=== PATIENT | male | born 1955 | race Asian ===

== ENCOUNTER 2019-06-20 19:40 | Inpatient (IN) | payer MEDICAID ==
[~2019-06-20] VITALS: Ht 175.3 cm; Wt 57.8 kg
[2019-06-20 20:00] VITALS: BP 111/74
[2019-06-20 22:00] VITALS: BP 110/78
[2019-06-20] MEDS ORDERED: HYDROCODONE/ACETAMINOPHEN 5/325MG TABLET PO PRN (23:15)
[2019-06-21] VITALS (11 sets, daily range): BP systolic 99–137; BP diastolic 57–86
[2019-06-21 01:06] LABS: CREATINE KINASE MB FRACTION 1.4 ng/mL (0.5-3.6)
[2019-06-21] MEDS ORDERED: LIDOCAINE HCL 1% 20ML VIAL (Pyxis) INJ ONE (07:52)
[2019-06-21] MEDS ORDERED: IOHEXOL-300 100 ML BOTTLE ONE ×2 (07:52→08:51)
[2019-06-21] MEDS ORDERED: FENTANYL CITRATE/PF 50MCG/ML 2ML VIAL ONE (07:53)
[2019-06-21] MEDS ORDERED: MIDAZOLAM HCL 2 MG/2 ML VIAL ONE (07:53)
[2019-06-21] MEDS ORDERED: IODIXANOL 320MG/ML 100 ML BOTTLE IV ONE (08:51)
[2019-06-21] MEDS ORDERED: SODIUM CHLORIDE 0.45% 1,000 ML IV ONE (09:15)
[2019-06-21] MEDS ORDERED: ACETAMINOPHEN 325MG TABLET PO PRN (09:15)
[2019-06-21] MEDS ORDERED: MORPHINE SULFATE 2 MG/ML CPJ (NOT FOR IM USE) IV PRN (09:15)
[2019-06-21] MEDS ORDERED: ONDANSETRON HCL 4MG/2ML INJ IV PRN (09:15)
[2019-06-21] MEDS ORDERED: ATROPINE SULFATE 1MG/10ML SYR IV PRN (09:15)
[2019-06-21] MEDS ORDERED: CLOPIDOGREL 75MG TABLET ONE (09:27)
[2019-06-21] MEDS: METOPROLOL TARTRATE 25MG TABLET PO SCH ×2 (09:58→21:02)
[2019-06-21] MEDS: ASPIRIN 81MG TABLET PO SCH (09:58)
[2019-06-21] MEDS ORDERED: DEXTROSE 50% WATER 50ML SYRINGE IV PRN (11:00)
[2019-06-21] MEDS: BLOOD SUGAR DIAGNOSTIC STRIP TEST SCH ×4 (11:20→21:13)
[2019-06-21] MEDS: INSULIN LISPRO 100 UNITS/ML SUBCUT SCH ×4 (12:48→21:14)
[2019-06-21] MEDS ORDERED: HEPARIN SODIUM 1,000 UNIT/1ML VIAL IV ONE (13:15)
[2019-06-21 15:30] LABS: BASOPHILS % 0.3 % (0.0-2.0); EOSINOPHILS % 2.2 % (0.0-5.0); HEMATOCRIT. 34.6 % (42.0-52.0); HEMOGLOBIN. 11.7 g/dL (14.0-18.0); LYMPHOCYTES % 18.3 % (20.0-50.0); MEAN CORPUSCULAR HEMOGLOBIN 31.4 pg (28.0-32.0); MEAN CORPUSCULAR VOLUME 93.1 fL (80.0-94.0); MEAN PLATELET VOLUME 7.9 fl (7.4-10.4); MONOCYTES % 6.9 % (2.0-8.0); NEUTROPHILS % 72.3 % (40.0-76.0); PLATELET 350 x1000/uL (130-400); RED BLOOD CELL COUNT 3.72 mill/uL (4.7-6.1)
[2019-06-21 15:34] LABS: CHLORIDE 106 mEq/L (98-107)
[2019-06-21 15:43] LABS: CREATINE KINASE 26 IU/L (39-308)
[2019-06-21 15:45] LABS: CREATINE KINASE MB FRACTION 1.5 ng/mL (0.5-3.6)
[2019-06-21] MEDS: ATORVASTATIN CALCIUM 40MG TABLET PO SCH (21:02)
[2019-06-22] VITALS (11 sets, daily range): BP systolic 95–131; BP diastolic 50–83
[2019-06-22] MEDS: BUDESONIDE 0.5MG/2ML NEB HHN SCH ×3 (00:15→20:38)
[2019-06-22 06:14] LABS: CHLORIDE 107 mEq/L (98-107)
[2019-06-22 06:40] LABS: BASOPHILS % 0.4 % (0.0-2.0); EOSINOPHILS % 3.4 % (0.0-5.0); HEMATOCRIT. 31.5 % (42.0-52.0); LYMPHOCYTES % 19.3 % (20.0-50.0); MEAN CORPUSCULAR HEMOGLOBIN 32.2 pg (28.0-32.0); MEAN CORPUSCULAR VOLUME 92.3 fL (80.0-94.0); MEAN PLATELET VOLUME 7.9 fl (7.4-10.4); NEUTROPHILS % 70.9 % (40.0-76.0); PLATELET 331 x1000/uL (130-400); RED BLOOD CELL COUNT 3.41 mill/uL (4.7-6.1); RED CELL DISTRIBUTION WIDTH 14.2 % (11.6-14.6)
[2019-06-22] MEDS: CLOPIDOGREL 75MG TABLET PO SCH (08:32)
[2019-06-22] MEDS: METOPROLOL TARTRATE 25MG TABLET PO SCH ×2 (08:32→20:47)
[2019-06-22] MEDS: ASPIRIN 81MG TABLET PO SCH (08:32)
[2019-06-22] MEDS: INSULIN LISPRO 100 UNITS/ML SUBCUT SCH ×4 (08:33→20:49)
[2019-06-22] MEDS: BLOOD SUGAR DIAGNOSTIC STRIP TEST SCH ×3 (11:50→20:49)
[2019-06-22] MEDS: ATORVASTATIN CALCIUM 40MG TABLET PO SCH (20:48)
[2019-06-23] VITALS (12 sets, daily range): BP systolic 96–136; BP diastolic 57–90
[2019-06-23] MEDS: BLOOD SUGAR DIAGNOSTIC STRIP TEST SCH ×4 (06:21→21:15)
[2019-06-23] MEDS: INSULIN LISPRO 100 UNITS/ML SUBCUT SCH ×4 (06:21→21:15)
[2019-06-23] MEDS: ASPIRIN 81MG TABLET PO SCH (08:12)
[2019-06-23] MEDS: METOPROLOL TARTRATE 25MG TABLET PO SCH ×2 (08:12→21:14)
[2019-06-23] MEDS: CLOPIDOGREL 75MG TABLET PO SCH (08:12)
[2019-06-23] MEDS: BUDESONIDE 0.5MG/2ML NEB HHN SCH ×2 (09:26→22:10)
[2019-06-23] MEDS: ATORVASTATIN CALCIUM 40MG TABLET PO SCH (21:13)
[2019-06-24] VITALS (12 sets, daily range): BP systolic 101–130; BP diastolic 45–78
[2019-06-24] MEDS: BLOOD SUGAR DIAGNOSTIC STRIP TEST SCH ×4 (06:06→21:05)
[2019-06-24 06:41] LABS: BASOPHILS % 0.4 % (0.0-2.0); EOSINOPHILS % 7.2 % (0.0-5.0); HEMATOCRIT. 31.1 % (42.0-52.0); HEMOGLOBIN. 10.9 g/dL (14.0-18.0); LYMPHOCYTES % 17.3 % (20.0-50.0); MEAN CORPUSCULAR HEMOGLOBIN 32.1 pg (28.0-32.0); MEAN CORPUSCULAR VOLUME 91.9 fL (80.0-94.0); MEAN PLATELET VOLUME 7.7 fl (7.4-10.4); MONOCYTES % 6.9 % (2.0-8.0); NEUTROPHILS % 68.2 % (40.0-76.0); PLATELET 296 x1000/uL (130-400); RED BLOOD CELL COUNT 3.38 mill/uL (4.7-6.1); RED CELL DISTRIBUTION WIDTH 14.5 % (11.6-14.6)
[2019-06-24 06:58] LABS: CHLORIDE 106 mEq/L (98-107)
[2019-06-24] MEDS: METOPROLOL TARTRATE 25MG TABLET PO SCH ×2 (08:29→21:04)
[2019-06-24] MEDS: ASPIRIN 81MG TABLET PO SCH (08:29)
[2019-06-24] MEDS: CLOPIDOGREL 75MG TABLET PO SCH (08:29)
[2019-06-24] MEDS: INSULIN LISPRO 100 UNITS/ML SUBCUT SCH ×4 (08:32→21:05)
[2019-06-24] MEDS: BUDESONIDE 0.5MG/2ML NEB HHN SCH (11:48)
[2019-06-24] MEDS ORDERED: HYDROCODONE/ACETAMINOPHEN 5/325MG TABLET PO PRN (16:00)
[2019-06-24] MEDS: ATORVASTATIN CALCIUM 40MG TABLET PO SCH (21:04)
[2019-06-25] VITALS (13 sets, daily range): BP systolic 85–127; BP diastolic 61–83
[2019-06-25 06:38] LABS: BASOPHILS % 0.5 % (0.0-2.0); EOSINOPHILS % 6.8 % (0.0-5.0); HEMATOCRIT. 32.7 % (42.0-52.0); HEMOGLOBIN. 11.2 g/dL (14.0-18.0); LYMPHOCYTES % 23.3 % (20.0-50.0); MEAN CORPUSCULAR HEMOGLOBIN 31.6 pg (28.0-32.0); MEAN CORPUSCULAR VOLUME 92.3 fL (80.0-94.0); MEAN PLATELET VOLUME 7.9 fl (7.4-10.4); NEUTROPHILS % 61.4 % (40.0-76.0); PLATELET 307 x1000/uL (130-400); RED BLOOD CELL COUNT 3.54 mill/uL (4.7-6.1); RED CELL DISTRIBUTION WIDTH 14.6 % (11.6-14.6)
[2019-06-25] MEDS: BLOOD SUGAR DIAGNOSTIC STRIP TEST SCH ×4 (07:00→21:00)
[2019-06-25] MEDS: INSULIN LISPRO 100 UNITS/ML SUBCUT SCH ×5 (07:20→21:43)
[2019-06-25 08:02] LABS: CHLORIDE 105 mEq/L (98-107)
[2019-06-25 08:14] LABS: VITAMIN B12 SERUM 365 pg/mL (211-911)
[2019-06-25] MEDS: ASPIRIN 81MG TABLET PO SCH (08:41)
[2019-06-25] MEDS: CLOPIDOGREL 75MG TABLET PO SCH (08:41)
[2019-06-25] MEDS: METOPROLOL TARTRATE 25MG TABLET PO SCH ×2 (09:00→21:00)
[2019-06-25] MEDS ORDERED: CLOP75TA15 PO (15:58)
[2019-06-25] MEDS ORDERED: LIP40 PO (15:58)
[2019-06-25] MEDS ORDERED: ASPI-1160 PO (15:58)
[2019-06-25] MEDS ORDERED: METF-414 MT (15:59)
[2019-06-25] MEDS: ATORVASTATIN CALCIUM 40MG TABLET PO SCH (21:40)
[2019-06-26] VITALS (15 sets, daily range): BP systolic 74–130; BP diastolic 52–90
[2019-06-26] MEDS: BLOOD SUGAR DIAGNOSTIC STRIP TEST SCH ×2 (06:28→11:50)
[2019-06-26] MEDS: ASPIRIN 81MG TABLET PO SCH (08:07)
[2019-06-26] MEDS: CLOPIDOGREL 75MG TABLET PO SCH (08:07)
[2019-06-26] MEDS: INSULIN LISPRO 100 UNITS/ML SUBCUT SCH ×2 (08:07→12:20)
[2019-06-26] MEDS: METOPROLOL TARTRATE 25MG TABLET PO SCH (09:00)
[2019-06-26] MEDS ORDERED: SODIUM CHLORIDE 0.9% 500 ML IV ONE (13:45)
[2019-06-26] MEDS ORDERED: LISINOPRIL 2.5MG TABLET PO SCH (14:00)
[2019-06-26] MEDS ORDERED: ATORVASTATIN CALCIUM 40MG TABLET PO SCH (21:00)
[2019-06-26] MEDS ORDERED: CARVEDILOL 3.125 MG TABLET PO SCH (21:00)
== END 2019-06-26 17:16 | disposition home or self-care (01) | DRG 174 ==
LOC: 3WST 19:40
PROVIDERS: ADMIT Internal Medicine; ATTEND Internal Medicine
PROC: 027034Z Dilation of Coronary Artery, One Artery with Drug-eluting Intraluminal Device, Percutaneous Approach (ICD-10-PCS; principal; 2019-06-21)
PROC: B2111ZZ Fluoroscopy of Multiple Coronary Arteries using Low Osmolar Contrast (ICD-10-PCS; 2019-06-21)
PROC: 4A023N7 Measurement of Cardiac Sampling and Pressure, Left Heart, Percutaneous Approach (ICD-10-PCS; 2019-06-21)
PROC: 4A10X4Z Monitoring of Central Nervous Electrical Activity, External Approach (ICD-10-PCS; 2019-06-24)
DX: I21.4 Non-ST elevation (NSTEMI) myocardial infarction (principal); I63.81 Other cerebral infarction due to occlusion or stenosis of small artery; E44.1 Mild protein-calorie malnutrition; E83.51 Hypocalcemia; D50.9 Iron deficiency anemia, unspecified; E11.9 Type 2 diabetes mellitus without complications; L97.919 Non-pressure chronic ulcer of unspecified part of right lower leg with unspecified severity; S81.811A Laceration without foreign body, right lower leg, initial encounter; S81.812A Laceration without foreign body, left lower leg, initial encounter; F17.210 Nicotine dependence, cigarettes, uncomplicated; D32.9 Benign neoplasm of meninges, unspecified; E78.5 Hyperlipidemia, unspecified; I25.10 Atherosclerotic heart disease of native coronary artery without angina pectoris; S00.83XA Contusion of other part of head, initial encounter; I10 Essential (primary) hypertension; R79.89 Other specified abnormal findings of blood chemistry; W18.39XA Other fall on same level, initial encounter; R23.4 Changes in skin texture; I25.5 Ischemic cardiomyopathy; D18.00 Hemangioma unspecified site; I95.1 Orthostatic hypotension; L97.929 Non-pressure chronic ulcer of unspecified part of left lower leg with unspecified severity; Z95.2 Presence of prosthetic heart valve; Z68.1 Body mass index [BMI] 19.9 or less, adult; Z56.0 Unemployment, unspecified; Y93.89 Activity, other specified; Y92.89 Other specified places as the place of occurrence of the external cause; Y99.8 Other external cause status; Z86.011 Personal history of benign neoplasm of the brain
CPT/HCPCS: 36415; 70551; 71045; 80048; 80053; 80061; 82550; 82553; 82607; 82962; 83036; 83735; 84443; 84484; 85025; 85347; 92928; 93005; 93306; 93454; 93880; 95816; 97110; 97116; 97162; C1725; C1760; C1769; C1874; C1887; C1893; J1644; J1815; J2250; J3010; J3490; J7626; Q9967

== ENCOUNTER 2019-06-26 19:03 | Inpatient (IN) | payer MEDICAID ==
[~2019-06-26] VITALS: Ht 172.7 cm; Wt 54.4 kg
[~2019-06-26 19:03] MED LIST: ASPI-1160 PO; CLOP75TA15 PO; LIP40 PO; METF-414 MT
[2019-06-26] MEDS ORDERED: SODIUM CHLORIDE 0.9% 1,000 ML IV ONE (20:00)
[2019-06-26 21:08] LABS: BASOPHILS % 0.4 % (0.0-2.0); EOSINOPHILS % 2.1 % (0.0-5.0); HEMATOCRIT. 34.6 % (42.0-52.0); HEMOGLOBIN. 11.3 g/dL (14.0-18.0); LYMPHOCYTES % 11.2 % (20.0-50.0); MEAN CORPUSCULAR HEMOGLOBIN 31.4 pg (28.0-32.0); MEAN CORPUSCULAR VOLUME 95.9 fL (80.0-94.0); MEAN PLATELET VOLUME 8.3 fl (7.4-10.4); MONOCYTES % 5.3 % (2.0-8.0); PLATELET 282 x1000/uL (130-400); RED BLOOD CELL COUNT 3.61 mill/uL (4.7-6.1); RED CELL DISTRIBUTION WIDTH 14.6 % (11.6-14.6)
[2019-06-26 22:14] LABS: CHLORIDE 103 mEq/L (98-107)
[2019-06-26 23:56] LABS: INR 0.9; PARTIAL THROMBOPLASTIN TIME 23.8 sec (23.4-31.0); PROTHROMBIN TIME 10.3 sec (9.6-11.0)
[2019-06-27] VITALS (7 sets, daily range): BP systolic 84–119; BP diastolic 56–70
[2019-06-27] MEDS ORDERED: DEXTROSE 50% WATER 50ML SYRINGE IV PRN (00:15)
[2019-06-27] MEDS ORDERED: ONDANSETRON HCL 4MG/2ML INJ IV PRN (00:15)
[2019-06-27] MEDS: SODIUM CHLORIDE 0.9% 1,000 ML IV SCH ×3 (00:23→18:34)
[2019-06-27] MEDS: BLOOD SUGAR DIAGNOSTIC STRIP TEST SCH ×4 (06:45→20:03)
[2019-06-27] MEDS: INSULIN LISPRO 100 UNITS/ML SUBCUT SCH ×4 (06:46→20:59)
[2019-06-27 07:36] LABS: CHLORIDE 108 mEq/L (98-107)
[2019-06-27 07:40] LABS: BASOPHILS % 0.4 % (0.0-2.0); EOSINOPHILS % 2.9 % (0.0-5.0); HEMATOCRIT. 27.4 % (42.0-52.0); HEMOGLOBIN. 9.4 g/dL (14.0-18.0); LYMPHOCYTES % 21.8 % (20.0-50.0); MEAN CORPUSCULAR HEMOGLOBIN 31.8 pg (28.0-32.0); MEAN CORPUSCULAR VOLUME 92.7 fL (80.0-94.0); MEAN PLATELET VOLUME 7.8 fl (7.4-10.4); MONOCYTES % 5.9 % (2.0-8.0); PLATELET 268 x1000/uL (130-400); RED BLOOD CELL COUNT 2.96 mill/uL (4.7-6.1); RED CELL DISTRIBUTION WIDTH 14.4 % (11.6-14.6)
[2019-06-27] MEDS: HEPARIN 5000 UNITS/ML VIAL SUBCUT SCH ×2 (08:50→20:58)
[2019-06-28] VITALS: BP 98/63
[2019-06-28] MEDS: SODIUM CHLORIDE 0.9% 1,000 ML IV SCH ×2 (02:40→15:36)
[2019-06-28 04:00] VITALS: BP 101/66
[2019-06-28 06:06] LABS: CHLORIDE 111 mEq/L (98-107)
[2019-06-28 06:15] LABS: T4 FREE 1.14 ng/dL (0.76-1.46)
[2019-06-28] MEDS: BLOOD SUGAR DIAGNOSTIC STRIP TEST SCH ×4 (06:32→21:00)
[2019-06-28 06:45] LABS: BASOPHILS % 0.7 % (0.0-2.0); EOSINOPHILS % 7.5 % (0.0-5.0); HEMATOCRIT. 24.5 % (42.0-52.0); HEMOGLOBIN. 8.4 g/dL (14.0-18.0); LYMPHOCYTES % 29.9 % (20.0-50.0); MEAN CORPUSCULAR HEMOGLOBIN 31.8 pg (28.0-32.0); MEAN PLATELET VOLUME 7.7 fl (7.4-10.4); MONOCYTES % 6.2 % (2.0-8.0); NEUTROPHILS % 55.7 % (40.0-76.0); PLATELET 243 x1000/uL (130-400); RED BLOOD CELL COUNT 2.64 mill/uL (4.7-6.1); RED CELL DISTRIBUTION WIDTH 14.3 % (11.6-14.6)
[2019-06-28] MEDS: INSULIN LISPRO 100 UNITS/ML SUBCUT SCH ×4 (07:46→21:00)
[2019-06-28 08:00] VITALS: BP_SYST 106; BP_SYST 87; BP_SYST 95; BP_DIAS 58; BP_DIAS 63; BP_DIAS 67
[2019-06-28] MEDS: HEPARIN 5000 UNITS/ML VIAL SUBCUT SCH ×2 (09:42→21:44)
[2019-06-28] MEDS: PIPERACILLIN/TAZOBACTAM 3.375 G in DEXT 5% WATER 100 ML IV SCH ×2 (13:43→18:59)
[2019-06-28] MEDS ORDERED: PIPERACILLIN/TAZOBACTAM 3.375 G/VIAL IV SCH (14:00)
[2019-06-28] MEDS: VANCOMYCIN 1 G PREMIX 200 ML IV SCH (14:59)
[2019-06-28 16:00] VITALS: BP 95/65
[2019-06-28 20:00] VITALS: BP 105/66
[2019-06-28] MEDS: ACETAMINOPHEN 325MG TABLET PO PRN (21:45)
[2019-06-29] VITALS: BP 99/60
[2019-06-29] MEDS: PIPERACILLIN/TAZOBACTAM 3.375 G in DEXT 5% WATER 100 ML IV SCH ×4 (00:29→18:20)
[2019-06-29] MEDS: VANCOMYCIN 1 G PREMIX 200 ML IV SCH ×2 (02:00→14:11)
[2019-06-29] MEDS: SODIUM CHLORIDE 0.9% 1,000 ML IV SCH (02:11)
[2019-06-29 04:00] VITALS: BP 107/68
[2019-06-29 06:09] LABS: BASOPHILS % 0.9 % (0.0-2.0); EOSINOPHILS % 8.5 % (0.0-5.0); HEMATOCRIT. 24.4 % (42.0-52.0); HEMOGLOBIN. 8.1 g/dL (14.0-18.0); LYMPHOCYTES % 32.3 % (20.0-50.0); MEAN CORPUSCULAR HEMOGLOBIN 31.2 pg (28.0-32.0); MEAN CORPUSCULAR VOLUME 93.4 fL (80.0-94.0); MEAN PLATELET VOLUME 7.9 fl (7.4-10.4); MONOCYTES % 7.5 % (2.0-8.0); NEUTROPHILS % 50.8 % (40.0-76.0); PLATELET 234 x1000/uL (130-400); RED BLOOD CELL COUNT 2.61 mill/uL (4.7-6.1); RED CELL DISTRIBUTION WIDTH 14.1 % (11.6-14.6)
[2019-06-29 06:10] LABS: CHLORIDE 110 mEq/L (98-107)
[2019-06-29] MEDS: BLOOD SUGAR DIAGNOSTIC STRIP TEST SCH ×4 (07:20→21:48)
[2019-06-29] MEDS: INSULIN LISPRO 100 UNITS/ML SUBCUT SCH ×4 (07:50→21:00)
[2019-06-29 08:00] VITALS: BP 110/65
[2019-06-29] MEDS: HEPARIN 5000 UNITS/ML VIAL SUBCUT SCH ×2 (09:26→22:00)
[2019-06-29] MEDS: DEXT 5%/0.9% NACL 1,000 ML IV SCH (11:04)
[2019-06-29 12:00] VITALS: BP 99/58
[2019-06-29 16:00] VITALS: BP 115/59
[2019-06-29 20:00] VITALS: BP 117/62
[2019-06-30] VITALS: BP 121/65
[2019-06-30] MEDS: PIPERACILLIN/TAZOBACTAM 3.375 G in DEXT 5% WATER 100 ML IV SCH ×4 (00:45→18:03)
[2019-06-30] MEDS: DEXT 5%/0.9% NACL 1,000 ML IV SCH ×2 (00:54→18:04)
[2019-06-30 04:00] VITALS: BP 121/60
[2019-06-30 06:21] LABS: EOSINOPHILS % 10.1 % (0.0-5.0); HEMATOCRIT. 23.7 % (42.0-52.0); HEMOGLOBIN. 8.2 g/dL (14.0-18.0); LYMPHOCYTES % 34.1 % (20.0-50.0); MEAN CORPUSCULAR HEMOGLOBIN 31.8 pg (28.0-32.0); MEAN CORPUSCULAR VOLUME 91.7 fL (80.0-94.0); MEAN PLATELET VOLUME 7.7 fl (7.4-10.4); NEUTROPHILS % 46.8 % (40.0-76.0); PLATELET 251 x1000/uL (130-400); RED BLOOD CELL COUNT 2.58 mill/uL (4.7-6.1); RED CELL DISTRIBUTION WIDTH 14.1 % (11.6-14.6)
[2019-06-30 06:32] LABS: CHLORIDE 112 mEq/L (98-107)
[2019-06-30] MEDS: BLOOD SUGAR DIAGNOSTIC STRIP TEST SCH ×4 (06:34→21:28)
[2019-06-30] MEDS: INSULIN LISPRO 100 UNITS/ML SUBCUT SCH ×4 (07:50→21:28)
[2019-06-30 08:00] VITALS: BP 104/66
[2019-06-30] MEDS: HEPARIN 5000 UNITS/ML VIAL SUBCUT SCH (08:20)
[2019-06-30 12:26] VITALS: BP 100/74
[2019-06-30] MEDS ORDERED: HYDR-4001 MT (14:12)
[2019-06-30 16:00] VITALS: BP 93/60
[2019-06-30 16:35] LABS: TOTAL IRON BINDING CAPACITY 196 ug/dL (250-450)
[2019-07-01] VITALS: BP 107/60
[2019-07-01] MEDS: DEXT 5%/0.9% NACL 1,000 ML IV SCH ×2 (00:15→12:45)
[2019-07-01] MEDS: PIPERACILLIN/TAZOBACTAM 3.375 G in DEXT 5% WATER 100 ML IV SCH ×3 (01:09→13:25)
[2019-07-01 04:00] VITALS: BP 115/74
[2019-07-01] MEDS: BLOOD SUGAR DIAGNOSTIC STRIP TEST SCH ×4 (06:24→21:15)
[2019-07-01] MEDS: INSULIN LISPRO 100 UNITS/ML SUBCUT SCH ×4 (07:50→21:00)
[2019-07-01 08:00] VITALS: BP 101/68
[2019-07-01 10:57] LABS: EOSINOPHILS % 10.3 % (0.0-5.0); HEMATOCRIT. 24.5 % (42.0-52.0); HEMOGLOBIN. 8.5 g/dL (14.0-18.0); LYMPHOCYTES % 30.2 % (20.0-50.0); MEAN CORPUSCULAR VOLUME 92.2 fL (80.0-94.0); MEAN PLATELET VOLUME 7.7 fl (7.4-10.4); MONOCYTES % 6.8 % (2.0-8.0); NEUTROPHILS % 51.7 % (40.0-76.0); PLATELET 265 x1000/uL (130-400); RED BLOOD CELL COUNT 2.66 mill/uL (4.7-6.1); RED CELL DISTRIBUTION WIDTH 14.4 % (11.6-14.6)
[2019-07-01 11:06] LABS: CHLORIDE 110 mEq/L (98-107)
[2019-07-01 12:00] VITALS: BP 104/68
[2019-07-01 16:00] VITALS: BP 114/73
[2019-07-01 20:00] VITALS: BP 104/66
[2019-07-01] MEDS: ACETAMINOPHEN 325MG TABLET PO PRN (21:20)
[2019-07-02] VITALS: BP 120/76
[2019-07-02] MEDS: DEXT 5%/0.9% NACL 1,000 ML IV SCH ×2 (00:22→13:29)
[2019-07-02 04:00] VITALS: BP 134/93
[2019-07-02 06:31] LABS: BASOPHILS % 0.7 % (0.0-2.0); HEMATOCRIT. 25.8 % (42.0-52.0); HEMOGLOBIN. 8.9 g/dL (14.0-18.0); MEAN CORPUSCULAR HEMOGLOBIN 31.5 pg (28.0-32.0); MEAN CORPUSCULAR VOLUME 91.1 fL (80.0-94.0); MEAN PLATELET VOLUME 7.5 fl (7.4-10.4); MONOCYTES % 7.3 % (2.0-8.0); PLATELET 274 x1000/uL (130-400); RED BLOOD CELL COUNT 2.83 mill/uL (4.7-6.1); RED CELL DISTRIBUTION WIDTH 14.3 % (11.6-14.6)
[2019-07-02] MEDS: BLOOD SUGAR DIAGNOSTIC STRIP TEST SCH ×4 (06:46→21:00)
[2019-07-02 07:10] LABS: CHLORIDE 112 mEq/L (98-107)
[2019-07-02 08:00] VITALS: BP 118/59
[2019-07-02] MEDS: INSULIN LISPRO 100 UNITS/ML SUBCUT SCH ×4 (08:02→21:41)
[2019-07-02 12:00] VITALS: BP_SYST 100; BP_SYST 110; BP_SYST 120; BP_DIAS 63; BP_DIAS 67; BP_DIAS 73
[2019-07-02 16:00] VITALS: BP 130/63
[2019-07-02 20:00] VITALS: BP 146/75
[2019-07-03] VITALS: BP 113/64
[2019-07-03 04:00] VITALS: BP 151/90
[2019-07-03] MEDS: DEXT 5%/0.9% NACL 1,000 ML IV SCH (06:49)
[2019-07-03] MEDS: BLOOD SUGAR DIAGNOSTIC STRIP TEST SCH ×4 (07:20→21:00)
[2019-07-03] MEDS: INSULIN LISPRO 100 UNITS/ML SUBCUT SCH ×4 (07:43→21:00)
[2019-07-03 08:00] VITALS: BP 98/62
[2019-07-03 12:00] VITALS: BP_SYST 105; BP_SYST 94; BP_SYST 97; BP_DIAS 63; BP_DIAS 66; BP_DIAS 71
[2019-07-03 16:00] VITALS: BP 113/70
[2019-07-03 20:00] VITALS: BP 106/72
[2019-07-04] VITALS: BP_SYST 118; BP_SYST 122; BP_DIAS 63; BP_DIAS 70
[2019-07-04 04:00] VITALS: BP 120/76
[2019-07-04] MEDS: BLOOD SUGAR DIAGNOSTIC STRIP TEST SCH ×4 (06:34→20:00)
[2019-07-04] MEDS: INSULIN LISPRO 100 UNITS/ML SUBCUT SCH ×4 (07:50→20:00)
[2019-07-04 08:00] VITALS: BP_SYST 123; BP_SYST 73; BP_SYST 92; BP_DIAS 52; BP_DIAS 63; BP_DIAS 67
[2019-07-04 12:00] VITALS: BP_SYST 104; BP_SYST 82; BP_SYST 84; BP_DIAS 58; BP_DIAS 74
[2019-07-04 16:00] VITALS: BP 110/73
[2019-07-04] MEDS: ACETAMINOPHEN 325MG TABLET PO PRN (17:43)
[2019-07-04 20:00] VITALS: BP 103/63
[2019-07-04] MEDS: MICONAZOLE NITRATE 2% OINT 71GM TOP SCH (21:06)
[2019-07-05] VITALS (8 sets, daily range): BP systolic 77–126; BP diastolic 48–80
[2019-07-05] MEDS: BLOOD SUGAR DIAGNOSTIC STRIP TEST SCH ×4 (05:41→20:50)
[2019-07-05 06:34] LABS: BASOPHILS % 0.7 % (0.0-2.0); EOSINOPHILS % 9.5 % (0.0-5.0); HEMATOCRIT. 28.4 % (42.0-52.0); HEMOGLOBIN. 9.8 g/dL (14.0-18.0); LYMPHOCYTES % 34.7 % (20.0-50.0); MEAN CORPUSCULAR HEMOGLOBIN 31.8 pg (28.0-32.0); MEAN PLATELET VOLUME 7.2 fl (7.4-10.4); NEUTROPHILS % 48.1 % (40.0-76.0); PLATELET 291 x1000/uL (130-400); RED BLOOD CELL COUNT 3.08 mill/uL (4.7-6.1); RED CELL DISTRIBUTION WIDTH 14.7 % (11.6-14.6)
[2019-07-05] MEDS: INSULIN LISPRO 100 UNITS/ML SUBCUT SCH ×4 (06:34→20:50)
[2019-07-05 07:01] LABS: CHLORIDE 108 mEq/L (98-107)
[2019-07-05] MEDS: MICONAZOLE NITRATE 2% OINT 71GM TOP SCH ×2 (09:13→20:51)
[2019-07-05 12:43] LABS: CLARITY URINE CLEAR (CLEAR); COLOR URINE YELLOW (YELLOW); KETONES URINE NEGATIVE (NEGATIVE); LEUKOCYTE ESTERASE URINE NEGATIVE (NEGATIVE); NITRITE URINE NEGATIVE (NEGATIVE); OCCULT BLOOD URINE NEGATIVE (NEGATIVE); PROTEIN URINE NEGATIVE (NEGATIVE); SPECIFIC GRAVITY URINE 1.006 (1.005-1.030); UROBILINOGEN URINE 0.2 E.U./dL (0.2-1.0)
[2019-07-05] MEDS: MIDODRINE HCL 5MG TABLET PO SCH ×2 (13:19→18:24)
[2019-07-06 04:09] VITALS: BP_SYST 106; BP_SYST 84; BP_SYST 91; BP_DIAS 59; BP_DIAS 64; BP_DIAS 71
[2019-07-06] MEDS: BLOOD SUGAR DIAGNOSTIC STRIP TEST SCH ×4 (07:20→20:25)
[2019-07-06] MEDS: INSULIN LISPRO 100 UNITS/ML SUBCUT SCH ×4 (07:50→20:48)
[2019-07-06 08:08] VITALS: BP_SYST 78; BP_SYST 89; BP_SYST 98; BP_DIAS 54; BP_DIAS 56; BP_DIAS 64
[2019-07-06] MEDS: MICONAZOLE NITRATE 2% OINT 71GM TOP SCH ×2 (09:40→21:00)
[2019-07-06] MEDS: MIDODRINE HCL 5MG TABLET PO SCH ×3 (09:40→17:00)
[2019-07-06] MEDS ORDERED: ASPIRIN 81MG EC TABLET PO NR (10:30)
[2019-07-06] MEDS ORDERED: CLOPIDOGREL 75MG TABLET PO NR (10:30)
[2019-07-06 12:00] VITALS: BP 105/68
[2019-07-06 12:13] VITALS: BP 105/68
[2019-07-06 16:00] VITALS: BP 103/72
[2019-07-06 20:00] VITALS: BP 106/68
[2019-07-06 20:57] LABS: FOLIC ACID (FOLATE) SERUM 15.1 ng/mL (>5.38)
[2019-07-07] VITALS: BP 98/69
[2019-07-07 04:00] VITALS: BP_SYST 102; BP_SYST 79; BP_SYST 97; BP_DIAS 55; BP_DIAS 65; BP_DIAS 68
[2019-07-07] MEDS: BLOOD SUGAR DIAGNOSTIC STRIP TEST SCH ×4 (06:27→22:48)
[2019-07-07] MEDS: INSULIN LISPRO 100 UNITS/ML SUBCUT SCH ×3 (07:42→17:50)
[2019-07-07 08:00] VITALS: BP 98/69
[2019-07-07] MEDS: CLOPIDOGREL 75MG TABLET PO SCH (09:17)
[2019-07-07] MEDS: ASPIRIN 81MG EC TABLET PO SCH (09:17)
[2019-07-07] MEDS: MIDODRINE HCL 5MG TABLET PO SCH ×3 (09:18→18:00)
[2019-07-07] MEDS: MICONAZOLE NITRATE 2% OINT 71GM TOP SCH ×2 (09:18→21:00)
[2019-07-07 12:00] VITALS: BP 115/64
[2019-07-07 16:00] VITALS: BP_SYST 111; BP_SYST 87; BP_SYST 92; BP_DIAS 61; BP_DIAS 66; BP_DIAS 69
[2019-07-07 16:13] LABS: BASOPHILS % 0.7 % (0.0-2.0); EOSINOPHILS % 8.6 % (0.0-5.0); HEMATOCRIT. 28.1 % (42.0-52.0); HEMOGLOBIN. 9.7 g/dL (14.0-18.0); LYMPHOCYTES % 33.4 % (20.0-50.0); MEAN CORPUSCULAR HEMOGLOBIN 31.4 pg (28.0-32.0); MEAN CORPUSCULAR VOLUME 90.9 fL (80.0-94.0); MEAN PLATELET VOLUME 6.9 fl (7.4-10.4); MONOCYTES % 7.7 % (2.0-8.0); NEUTROPHILS % 49.6 % (40.0-76.0); PLATELET 317 x1000/uL (130-400); RED CELL DISTRIBUTION WIDTH 14.2 % (11.6-14.6)
[2019-07-07 16:21] LABS: CHLORIDE 104 mEq/L (98-107)
[2019-07-07] MEDS: LACTULOSE 20G/30ML UDC PO SCH ×2 (18:00→21:00)
[2019-07-07] MEDS: FLUDROCORTISONE ACETATE 0.1MG TABLET PO SCH (18:01)
[2019-07-07 20:00] VITALS: BP 117/69
[2019-07-08] VITALS: BP 98/63
[2019-07-08 04:00] VITALS: BP_SYST 104; BP_SYST 79; BP_SYST 80; BP_DIAS 52; BP_DIAS 53; BP_DIAS 68
[2019-07-08] MEDS: BLOOD SUGAR DIAGNOSTIC STRIP TEST SCH ×4 (05:26→20:38)
[2019-07-08] MEDS: INSULIN LISPRO 100 UNITS/ML SUBCUT SCH ×5 (05:31→20:38)
[2019-07-08] MEDS: FLUDROCORTISONE ACETATE 0.1MG TABLET PO SCH (08:28)
[2019-07-08] MEDS: CLOPIDOGREL 75MG TABLET PO SCH (08:28)
[2019-07-08] MEDS: ASPIRIN 81MG EC TABLET PO SCH (08:28)
[2019-07-08 08:30] VITALS: BP_SYST 101; BP_SYST 75; BP_SYST 77; BP_DIAS 54; BP_DIAS 56; BP_DIAS 70
[2019-07-08] MEDS: MIDODRINE HCL 5MG TABLET PO SCH ×3 (08:31→16:42)
[2019-07-08] MEDS: LACTULOSE 20G/30ML UDC PO SCH ×3 (08:35→16:44)
[2019-07-08] MEDS: CYANOCOBALAMIN 1000MCG/ML VIAL IM SCH (08:35)
[2019-07-08] MEDS: MICONAZOLE NITRATE 2% OINT 71GM TOP SCH ×2 (09:00→20:38)
[2019-07-08 12:00] VITALS: BP 102/74
[2019-07-08] MEDS ORDERED: BISACODYL 10MG SUPP PR NR (14:30)
[2019-07-08] MEDS: DOCUSATE SODIUM 100MG CAPSULE PO SCH (16:43)
[2019-07-08 17:36] VITALS: BP 112/77
[2019-07-08 20:00] VITALS: BP_SYST 103; BP_SYST 118; BP_SYST 126; BP_DIAS 68; BP_DIAS 70; BP_DIAS 79
[2019-07-08] MEDS: POLYETHYLENE GLYCOL 3350 (17GM) 1 DOSE PACK PO SCH (20:37)
[2019-07-09] VITALS: BP 104/70
[2019-07-09 04:00] VITALS: BP 116/77
[2019-07-09] MEDS: BLOOD SUGAR DIAGNOSTIC STRIP TEST SCH ×4 (06:23→21:11)
[2019-07-09] MEDS: INSULIN LISPRO 100 UNITS/ML SUBCUT SCH ×4 (07:50→21:17)
[2019-07-09 08:00] VITALS: BP 119/66
[2019-07-09] MEDS: ASPIRIN 81MG EC TABLET PO SCH (09:40)
[2019-07-09] MEDS: CLOPIDOGREL 75MG TABLET PO SCH (09:41)
[2019-07-09] MEDS: MIDODRINE HCL 5MG TABLET PO SCH ×3 (09:41→17:00)
[2019-07-09] MEDS: CYANOCOBALAMIN 1000MCG/ML VIAL IM SCH (09:42)
[2019-07-09] MEDS: FLUDROCORTISONE ACETATE 0.1MG TABLET PO SCH (09:47)
[2019-07-09] MEDS: DOCUSATE SODIUM 100MG CAPSULE PO SCH ×2 (09:50→17:30)
[2019-07-09] MEDS: MICONAZOLE NITRATE 2% OINT 71GM TOP SCH ×2 (09:51→20:59)
[2019-07-09 12:00] VITALS: BP 132/72
[2019-07-09 16:00] VITALS: BP 119/73
[2019-07-09 20:00] VITALS: BP 123/64
[2019-07-09] MEDS: POLYETHYLENE GLYCOL 3350 (17GM) 1 DOSE PACK PO SCH ×2 (20:59→21:00)
[2019-07-10 00:15] VITALS: BP 121/64
[2019-07-10 05:15] VITALS: BP 114/66
[2019-07-10] MEDS: BLOOD SUGAR DIAGNOSTIC STRIP TEST SCH ×4 (06:36→20:53)
[2019-07-10] MEDS: INSULIN LISPRO 100 UNITS/ML SUBCUT SCH ×4 (07:50→20:53)
[2019-07-10] MEDS: CYANOCOBALAMIN 1000MCG/ML VIAL IM SCH (09:00)
[2019-07-10] MEDS: ASPIRIN 81MG EC TABLET PO SCH (10:33)
[2019-07-10] MEDS: FLUDROCORTISONE ACETATE 0.1MG TABLET PO SCH (10:33)
[2019-07-10] MEDS: CLOPIDOGREL 75MG TABLET PO SCH (10:33)
[2019-07-10] MEDS: MIDODRINE HCL 5MG TABLET PO SCH ×3 (10:36→17:00)
[2019-07-10] MEDS: DOCUSATE SODIUM 100MG CAPSULE PO SCH ×2 (10:45→17:55)
[2019-07-10] MEDS: MICONAZOLE NITRATE 2% OINT 71GM TOP SCH ×2 (10:55→20:55)
[2019-07-10 15:40] VITALS: BP_SYST 126; BP_SYST 127; BP_SYST 97; BP_DIAS 75; BP_DIAS 76; BP_DIAS 77
[2019-07-10] MEDS ORDERED: METF-414 MT (16:09)
[2019-07-10] MEDS ORDERED: FLOR PO (16:09)
[2019-07-10] MEDS ORDERED: MIDO5TAB4 PO (16:09)
[2019-07-10] MEDS ORDERED: ASPI-1160 PO (16:09)
[2019-07-10] MEDS ORDERED: CLOP75TA15 PO (16:09)
[2019-07-10] MEDS ORDERED: MICO15CR4 TOP (16:09)
[2019-07-10] MEDS ORDERED: LIP40 PO (16:09)
[2019-07-10] MEDS ORDERED: SENN-170 MT (16:09)
[2019-07-10 20:00] VITALS: BP 128/78
[2019-07-10] MEDS: POLYETHYLENE GLYCOL 3350 (17GM) 1 DOSE PACK PO SCH (20:29)
[2019-07-11] VITALS (7 sets, daily range): BP systolic 96–135; BP diastolic 65–87
[2019-07-11 05:07] LABS: 25-HYDROXY VITAMIN D3 5.6 ng/mL (.)
[2019-07-11] MEDS: BLOOD SUGAR DIAGNOSTIC STRIP TEST SCH ×4 (06:32→20:09)
[2019-07-11] MEDS: INSULIN LISPRO 100 UNITS/ML SUBCUT SCH ×4 (07:50→20:09)
[2019-07-11] MEDS: MICONAZOLE NITRATE 2% OINT 71GM TOP SCH ×2 (09:00→20:07)
[2019-07-11] MEDS: DOCUSATE SODIUM 100MG CAPSULE PO SCH ×2 (09:00→16:35)
[2019-07-11] MEDS: CLOPIDOGREL 75MG TABLET PO SCH (10:54)
[2019-07-11] MEDS: FLUDROCORTISONE ACETATE 0.1MG TABLET PO SCH (10:54)
[2019-07-11] MEDS: ASPIRIN 81MG EC TABLET PO SCH (10:54)
[2019-07-11] MEDS: MIDODRINE HCL 5MG TABLET PO SCH ×3 (10:55→16:35)
[2019-07-11] MEDS: CYANOCOBALAMIN 1000MCG/ML VIAL IM SCH (10:56)
[2019-07-11] MEDS ORDERED: ERGOCALCIFEROL 50000UNITS CAPSULE PO SCH (17:15)
[2019-07-11] MEDS: POLYETHYLENE GLYCOL 3350 (17GM) 1 DOSE PACK PO SCH (20:08)
[2019-07-12 00:23] VITALS: BP 129/72
[2019-07-12 05:21] VITALS: BP 98/70
[2019-07-12] MEDS: INSULIN LISPRO 100 UNITS/ML SUBCUT SCH ×4 (07:50→20:57)
[2019-07-12] MEDS: BLOOD SUGAR DIAGNOSTIC STRIP TEST SCH ×4 (08:12→20:38)
[2019-07-12] MEDS: LACTULOSE 20G/30ML UDC PO SCH ×3 (09:00→16:40)
[2019-07-12] MEDS: FLUDROCORTISONE ACETATE 0.1MG TABLET PO SCH (10:24)
[2019-07-12] MEDS: ASPIRIN 81MG EC TABLET PO SCH (10:24)
[2019-07-12] MEDS: DOCUSATE SODIUM 100MG CAPSULE PO SCH ×2 (10:24→16:40)
[2019-07-12] MEDS: CYANOCOBALAMIN 1000MCG/ML VIAL IM SCH (10:25)
[2019-07-12] MEDS: CLOPIDOGREL 75MG TABLET PO SCH (10:25)
[2019-07-12] MEDS: MIDODRINE HCL 5MG TABLET PO SCH ×3 (10:26→18:09)
[2019-07-12] MEDS: MICONAZOLE NITRATE 2% OINT 71GM TOP SCH ×2 (10:27→20:38)
[2019-07-12 12:00] VITALS: BP 110/69
[2019-07-12 16:00] VITALS: BP 100/57
[2019-07-12 16:28] LABS: BASOPHILS % 0.6 % (0.0-2.0); EOSINOPHILS % 12.8 % (0.0-5.0); HEMATOCRIT. 31.4 % (42.0-52.0); HEMOGLOBIN. 10.6 g/dL (14.0-18.0); LYMPHOCYTES % 36.3 % (20.0-50.0); MEAN CORPUSCULAR HEMOGLOBIN 30.5 pg (28.0-32.0); MEAN CORPUSCULAR VOLUME 90.6 fL (80.0-94.0); MEAN PLATELET VOLUME 7.3 fl (7.4-10.4); MONOCYTES % 8.1 % (2.0-8.0); NEUTROPHILS % 42.2 % (40.0-76.0); PLATELET 360 x1000/uL (130-400); RED BLOOD CELL COUNT 3.47 mill/uL (4.7-6.1); RED CELL DISTRIBUTION WIDTH 14.1 % (11.6-14.6)
[2019-07-12 16:33] LABS: CHLORIDE 104 mEq/L (98-107)
[2019-07-12 20:00] VITALS: BP_SYST 101; BP_SYST 84; BP_SYST 87; BP_DIAS 58; BP_DIAS 62; BP_DIAS 64
[2019-07-12] MEDS: POLYETHYLENE GLYCOL 3350 (17GM) 1 DOSE PACK PO SCH (20:38)
[2019-07-13] VITALS: BP 97/63
[2019-07-13 04:00] VITALS: BP_SYST 136; BP_SYST 95; BP_DIAS 68; BP_DIAS 71
[2019-07-13] MEDS: BLOOD SUGAR DIAGNOSTIC STRIP TEST SCH ×4 (06:23→20:31)
[2019-07-13] MEDS: INSULIN LISPRO 100 UNITS/ML SUBCUT SCH ×4 (07:50→21:00)
[2019-07-13 08:00] VITALS: BP 101/66
[2019-07-13] MEDS: DOCUSATE SODIUM 100MG CAPSULE PO SCH ×2 (09:30→18:10)
[2019-07-13] MEDS: CLOPIDOGREL 75MG TABLET PO SCH (09:30)
[2019-07-13] MEDS: ASPIRIN 81MG EC TABLET PO SCH (09:30)
[2019-07-13] MEDS: MIDODRINE HCL 5MG TABLET PO SCH ×3 (09:30→18:01)
[2019-07-13] MEDS: FLUDROCORTISONE ACETATE 0.1MG TABLET PO SCH (09:30)
[2019-07-13] MEDS: MICONAZOLE NITRATE 2% OINT 71GM TOP SCH ×2 (09:33→21:11)
[2019-07-13 12:00] VITALS: BP 102/62
[2019-07-13 16:00] VITALS: BP 125/70
[2019-07-13 20:00] VITALS: BP_SYST 128; BP_SYST 88; BP_SYST 98; BP_DIAS 60; BP_DIAS 63; BP_DIAS 69
[2019-07-13] MEDS: POLYETHYLENE GLYCOL 3350 (17GM) 1 DOSE PACK PO SCH (21:00)
[2019-07-14] VITALS: BP 119/80
[2019-07-14 05:00] VITALS: BP 109/68
[2019-07-14] MEDS: BLOOD SUGAR DIAGNOSTIC STRIP TEST SCH ×2 (05:55→12:12)
[2019-07-14] MEDS: INSULIN LISPRO 100 UNITS/ML SUBCUT SCH ×2 (06:02→12:30)
[2019-07-14 08:00] VITALS: BP_SYST 70; BP_SYST 72; BP_SYST 90; BP_DIAS 47; BP_DIAS 52; BP_DIAS 61
[2019-07-14] MEDS: FLUDROCORTISONE ACETATE 0.1MG TABLET PO SCH (08:33)
[2019-07-14] MEDS: CLOPIDOGREL 75MG TABLET PO SCH (08:33)
[2019-07-14] MEDS: DOCUSATE SODIUM 100MG CAPSULE PO SCH (08:33)
[2019-07-14] MEDS: ASPIRIN 81MG EC TABLET PO SCH (08:33)
[2019-07-14] MEDS: MIDODRINE HCL 5MG TABLET PO SCH ×2 (08:34→12:29)
[2019-07-14] MEDS: MICONAZOLE NITRATE 2% OINT 71GM TOP SCH (08:36)
[2019-07-14 12:00] VITALS: BP 96/63
[2019-07-14] MEDS ORDERED: LACTULOSE 20G/30ML UDC PO SCH (13:30)
[2019-07-14 15:08] VITALS: BP 96/63
[2019-07-14 16:00] VITALS: BP 126/66
== END 2019-07-14 16:45 | disposition home or self-care (01) | DRG 190 ==
LOC: ER 19:03 → 6WST 23:37 → EDBEDREQTM 23:40 → EDBEDREQ 23:40 → ENRESERV 23:56
PROVIDERS: ADMIT Internal Medicine; ATTEND Internal Medicine
DX: I21.4 Non-ST elevation (NSTEMI) myocardial infarction (principal); G82.50 Quadriplegia, unspecified; N17.9 Acute kidney failure, unspecified; E11.65 Type 2 diabetes mellitus with hyperglycemia; E46 Unspecified protein-calorie malnutrition; I95.9 Hypotension, unspecified; E83.51 Hypocalcemia; D62 Acute posthemorrhagic anemia; E87.1 Hypo-osmolality and hyponatremia; B35.4 Tinea corporis; I95.1 Orthostatic hypotension; S02.609A Fracture of mandible, unspecified, initial encounter for closed fracture; D72.829 Elevated white blood cell count, unspecified; E78.5 Hyperlipidemia, unspecified; D63.8 Anemia in other chronic diseases classified elsewhere; I25.10 Atherosclerotic heart disease of native coronary artery without angina pectoris; F17.210 Nicotine dependence, cigarettes, uncomplicated; I25.2 Old myocardial infarction; Z86.73 Personal history of transient ischemic attack (TIA), and cerebral infarction without residual deficits; Z79.82 Long term (current) use of aspirin; Z95.2 Presence of prosthetic heart valve; D50.9 Iron deficiency anemia, unspecified; I10 Essential (primary) hypertension; I25.5 Ischemic cardiomyopathy; K59.00 Constipation, unspecified; S00.81XA Abrasion of other part of head, initial encounter; S03.00XA Dislocation of jaw, unspecified side, initial encounter; Z82.49 Family history of ischemic heart disease and other diseases of the circulatory system; Z95.5 Presence of coronary angioplasty implant and graft; Z86.011 Personal history of benign neoplasm of the brain; W18.39XA Other fall on same level, initial encounter; Y93.89 Activity, other specified; Y92.89 Other specified places as the place of occurrence of the external cause; Y99.8 Other external cause status; Z68.1 Body mass index [BMI] 19.9 or less, adult; G90.8 Other disorders of autonomic nervous system
CPT/HCPCS: 36415; 70486; 71045; 80048; 80053; 80202; 81003; 82306; 82533; 82607; 82728; 82746; 82962; 83036; 83540; 83550; 83735; 83880; 84145; 84439; 84443; 84484; 85025; 92523; 93005; 97110; 97116; 97162; 97164; 97166; 97168; 97530; 97535; 99285; J1644; J1815; J2543; J3370; J3420; J7030; J7042; J7060

== ENCOUNTER 2019-07-20 15:15 | Inpatient (IN) | payer MEDICAID ==
[~2019-07-20] VITALS: Ht 175.3 cm; Wt 59.0 kg
[~2019-07-20 15:15] MED LIST changes: +FLOR PO; +LIDOCAINE HCL/PF 1% 2ML VIAL ONE; +MICO15CR4 TOP; +MIDO5TAB4 PO; +SENN-170 MT
[2019-07-20] MEDS ORDERED: SODIUM CHLORIDE 0.9% 1,000 ML IV ONE (15:53)
[2019-07-20 16:32] LABS: BG BASE EXCESS -6.8 mmol/L (-2.0-2.0); BG CARBOXYHEMOGLOBIN 0.3 % (0.5-1.5); BG DEOXYHEMOGLOBIN 0.8 % (0.0-5.0); BG FRACTION INSPIRED OXYGEN 100; BG HCO3 ACT 17.5 mmol/L (22.0-26.0); BG METHEMOGLOBIN 0.4 % (0.0-1.5); BG OXYGEN SATURATION 99.2 % (92.0-98.5); BG OXYHEMOGLOBIN 98.5 % (94.0-97.0); BG PH 7.385 (7.350-7.450); BG PO2 462.7 mmHg (75.0-100.0); BG SAMPLE SITE RIGHT RADIAL; BG TOTAL HEMOGLOBIN 7.1 g/dL (12.0-18.0); BG VENT MODE MASK - NRB
[2019-07-20 17:31] LABS: BASOPHILS % 0.5 % (0.0-2.0); EOSINOPHILS % 1.2 % (0.0-5.0); HEMATOCRIT. 27.1 % (42.0-52.0); HEMOGLOBIN. 9.1 g/dL (14.0-18.0); LYMPHOCYTES % 17.3 % (20.0-50.0); MEAN CORPUSCULAR HEMOGLOBIN 30.9 pg (28.0-32.0); MEAN CORPUSCULAR VOLUME 92.7 fL (80.0-94.0); MEAN PLATELET VOLUME 8.4 fl (7.4-10.4); RED BLOOD CELL COUNT 2.93 mill/uL (4.7-6.1); RED CELL DISTRIBUTION WIDTH 14.7 % (11.6-14.6)
[2019-07-20 17:38] LABS: CHLORIDE 108 mEq/L (98-107)
[2019-07-20 17:40] LABS: INR 0.9; PROTHROMBIN TIME 10.3 sec (9.6-11.0)
[2019-07-20] MEDS ORDERED: SODIUM CHLORIDE 0.9% 1000ML BAG (SEPSIS BOLUS) IV ONE (18:45)
[2019-07-20] MEDS ORDERED: SODIUM BICARBONATE 8.4% 1 MEQ/ML 50ML SYR IV ONE (18:45)
[2019-07-20] MEDS ORDERED: LEVOFLOXACIN 750MG PREMIX 150 ML IV ONE (18:45)
[2019-07-20 19:42] LABS: CLARITY URINE CLEAR (CLEAR); COLOR URINE DARK YELLOW (YELLOW); KETONES URINE TRACE (NEGATIVE); LEUKOCYTE ESTERASE URINE TRACE (NEGATIVE); NITRITE URINE NEGATIVE (NEGATIVE); OCCULT BLOOD URINE TRACE (NEGATIVE); PROTEIN URINE 2+ (NEGATIVE); SPECIFIC GRAVITY URINE 1.028 (1.005-1.030)
[2019-07-20] MEDS ORDERED: ENOXAPARIN 60MG/0.6ML SYR SUBCUT ONE (20:00)
[2019-07-20 20:59] LABS: PLATELET 490 x1000/uL (130-400)
[2019-07-20] MEDS ORDERED: ACETAMINOPHEN 325MG TABLET PO PRN (21:45)
[2019-07-20] MEDS ORDERED: LORAZEPAM 2MG/ML CPJ IV PRN (21:45)
[2019-07-20] MEDS ORDERED: GUAIFENESIN 200MG/10ML SUGAR FREE UDC PO PRN (21:45)
[2019-07-20] MEDS ORDERED: CLONIDINE 0.1MG TABLET PO PRN (21:45)
[2019-07-20] MEDS ORDERED: DIPHENHYDRAMINE 50MG/ML VIAL IV PRN (21:45)
[2019-07-20] MEDS: LEVOFLOXACIN 500MG PREMIX 100 ML IV SCH (21:45)
[2019-07-20] MEDS ORDERED: ONDANSETRON HCL 4MG/2ML INJ IV PRN (21:45)
[2019-07-20] MEDS ORDERED: NA PHOS,M-B/NA PHOS,DI-BA ENEMA 118ML PR PRN (21:45)
[2019-07-20] MEDS ORDERED: HYDRALAZINE 20MG/ML VIAL IV PRN (21:45)
[2019-07-20] MEDS ORDERED: DOCUSATE SODIUM 100MG CAPSULE PO PRN (21:45)
[2019-07-20] MEDS ORDERED: DEXTROSE 50% WATER 50ML SYRINGE IV PRN (21:45)
[2019-07-20] MEDS ORDERED: IPRATROPIUM/ALBUTEROL 0.5-3(2.5)MG/3ML NEB NEB PRN (21:45)
[2019-07-20] MEDS ORDERED: MORPHINE SULFATE 2 MG/ML CPJ (NOT FOR IM USE) IV PRN (21:45)
[2019-07-20] MEDS ORDERED: MAGNESIUM/ALUMINUM HYDROXIDE/SIMETHICONE 30ML UDC PO PRN (21:45)
[2019-07-20] MEDS ORDERED: HYDROCODONE/ACETAMINOPHEN 10/325MG TABLET PO PRN (21:45)
[2019-07-20] MEDS ORDERED: ENOXAPARIN 40MG/0.4ML SYR SUBCUT SCH (21:45)
[2019-07-20] MEDS: SODIUM CHLORIDE 0.9% INJ 3ML FLUSH IVF SCH (22:04)
[2019-07-20] MEDS: DEXT 5%/0.45% NACL 1000ML 1,000 ML IV SCH (22:39)
[2019-07-21 05:26] LABS: BASOPHILS % 0.5 % (0.0-2.0); CHLORIDE 112 mEq/L (98-107); EOSINOPHILS % 1.6 % (0.0-5.0); MEAN CORPUSCULAR HEMOGLOBIN 30.6 pg (28.0-32.0); MEAN CORPUSCULAR VOLUME 90.9 fL (80.0-94.0); MEAN PLATELET VOLUME 7.8 fl (7.4-10.4); MONOCYTES % 7.3 % (2.0-8.0); NEUTROPHILS % 52.6 % (40.0-76.0); PLATELET 236 x1000/uL (130-400); RED BLOOD CELL COUNT 1.78 mill/uL (4.7-6.1); RED CELL DISTRIBUTION WIDTH 14.3 % (11.6-14.6)
[2019-07-21] MEDS: SODIUM CHLORIDE 0.9% INJ 3ML FLUSH IVF SCH ×3 (06:14→22:00)
[2019-07-21 06:18] LABS: HEMOGLOBIN. 5.5 g/dL (14.0-18.0)
[2019-07-21 06:19] LABS: HEMATOCRIT. 16.2 % (42.0-52.0)
[2019-07-21] MEDS: INSULIN LISPRO 100 UNITS/ML SUBCUT SCH ×4 (08:20→21:00)
[2019-07-21] MEDS: BLOOD SUGAR DIAGNOSTIC STRIP TEST SCH ×4 (08:49→21:00)
[2019-07-21 15:12] VITALS: BP 95/58
[2019-07-21 16:00] VITALS: BP 98/72
[2019-07-21 16:00] LABS: BASOPHILS % 0.5 % (0.0-2.0); EOSINOPHILS % 2.5 % (0.0-5.0); HEMATOCRIT. 22.1 % (42.0-52.0); HEMOGLOBIN. 7.5 g/dL (14.0-18.0); LYMPHOCYTES % 36.2 % (20.0-50.0); MEAN CORPUSCULAR VOLUME 91.9 fL (80.0-94.0); MEAN PLATELET VOLUME 7.6 fl (7.4-10.4); MONOCYTES % 7.9 % (2.0-8.0); NEUTROPHILS % 52.9 % (40.0-76.0); PLATELET 227 x1000/uL (130-400); RED CELL DISTRIBUTION WIDTH 13.8 % (11.6-14.6)
[2019-07-21] MEDS: PANTOPRAZOLE SODIUM 40 MG/VIAL IV SCH (17:55)
[2019-07-21 18:28] LABS: TOTAL IRON BINDING CAPACITY 192 ug/dL (250-450)
[2019-07-21 20:00] VITALS: BP 92/60
[2019-07-21] MEDS: LEVOFLOXACIN 500MG PREMIX 100 ML IV SCH (21:45)
[2019-07-21] MEDS: DEXT 5%/0.45% NACL 1000ML 1,000 ML IV SCH (22:29)
[2019-07-22] VITALS (15 sets, daily range): BP systolic 85–109; BP diastolic 51–68
[2019-07-22] MEDS ORDERED: LEVOFLOXACIN 500MG PREMIX 100 ML IV NR
[2019-07-22 06:06] LABS: BASOPHILS % 0.6 % (0.0-2.0); EOSINOPHILS % 5.5 % (0.0-5.0); LYMPHOCYTES % 29.2 % (20.0-50.0); MEAN CORPUSCULAR VOLUME 88.8 fL (80.0-94.0); MEAN PLATELET VOLUME 7.4 fl (7.4-10.4); MONOCYTES % 5.2 % (2.0-8.0); NEUTROPHILS % 59.5 % (40.0-76.0); PLATELET 211 x1000/uL (130-400); RED CELL DISTRIBUTION WIDTH 13.8 % (11.6-14.6)
[2019-07-22 06:50] LABS: CHLORIDE 111 mEq/L (98-107)
[2019-07-22 07:21] LABS: HEMATOCRIT. 18.6 % (42.0-52.0); HEMOGLOBIN. 6.5 g/dL (14.0-18.0)
[2019-07-22] MEDS: INSULIN LISPRO 100 UNITS/ML SUBCUT SCH ×4 (07:50→21:00)
[2019-07-22] MEDS: BLOOD SUGAR DIAGNOSTIC STRIP TEST SCH ×4 (08:06→22:12)
[2019-07-22] MEDS: PANTOPRAZOLE SODIUM 40 MG/VIAL IV SCH ×2 (09:36→21:20)
[2019-07-22] MEDS: SODIUM CHLORIDE 0.9% INJ 3ML FLUSH IVF SCH ×2 (14:00→22:13)
[2019-07-22] MEDS: CLOPIDOGREL 75MG TABLET PO SCH (14:10)
[2019-07-22] MEDS: LEVOFLOXACIN 500MG PREMIX 100 ML IV SCH (17:42)
[2019-07-22 20:37] LABS: HEMATOCRIT 25.2 % (42.0-52.0); HEMOGLOBIN 8.9 g/dL (14.0-18.0)
[2019-07-22] MEDS ORDERED: LEVOFLOXACIN 500MG PREMIX 100 ML IV SCH (21:00)
[2019-07-22] MEDS: ATORVASTATIN CALCIUM 40MG TABLET PO SCH (21:20)
[2019-07-22] MEDS: DEXT 5%/0.45% NACL 1000ML 1,000 ML IV SCH (22:13)
[2019-07-23] VITALS: BP 91/52
[2019-07-23 04:00] VITALS: BP 109/64
[2019-07-23] MEDS: SODIUM CHLORIDE 0.9% INJ 3ML FLUSH IVF SCH ×3 (05:54→22:02)
[2019-07-23] MEDS: BLOOD SUGAR DIAGNOSTIC STRIP TEST SCH ×4 (06:21→20:51)
[2019-07-23 06:42] LABS: BASOPHILS % 0.6 % (0.0-2.0); EOSINOPHILS % 10.6 % (0.0-5.0); HEMATOCRIT. 26.1 % (42.0-52.0); HEMOGLOBIN. 9.2 g/dL (14.0-18.0); LYMPHOCYTES % 27.3 % (20.0-50.0); MEAN CORPUSCULAR HEMOGLOBIN 31.4 pg (28.0-32.0); MEAN CORPUSCULAR VOLUME 89.1 fL (80.0-94.0); MEAN PLATELET VOLUME 7.3 fl (7.4-10.4); MONOCYTES % 6.9 % (2.0-8.0); NEUTROPHILS % 54.6 % (40.0-76.0); PLATELET 198 x1000/uL (130-400); RED BLOOD CELL COUNT 2.93 mill/uL (4.7-6.1); RED CELL DISTRIBUTION WIDTH 13.8 % (11.6-14.6)
[2019-07-23 07:31] LABS: CHLORIDE 109 mEq/L (98-107)
[2019-07-23] MEDS: INSULIN LISPRO 100 UNITS/ML SUBCUT SCH ×4 (07:45→21:00)
[2019-07-23 08:00] VITALS: BP 110/63
[2019-07-23] MEDS: CLOPIDOGREL 75MG TABLET PO SCH (09:04)
[2019-07-23] MEDS: PANTOPRAZOLE SODIUM 40 MG/VIAL IV SCH ×2 (09:04→21:46)
[2019-07-23] MEDS: LEVOFLOXACIN 500MG PREMIX 100 ML IV SCH (11:03)
[2019-07-23 12:00] VITALS: BP 112/63
[2019-07-23 16:00] VITALS: BP 95/54
[2019-07-23 20:00] VITALS: BP 96/60
[2019-07-23] MEDS: ATORVASTATIN CALCIUM 40MG TABLET PO SCH (21:17)
[2019-07-24] VITALS: BP 101/64
[2019-07-24] MEDS: DEXT 5%/0.45% NACL 1000ML 1,000 ML IV SCH (03:29)
[2019-07-24 04:00] VITALS: BP 112/63
[2019-07-24] MEDS: BLOOD SUGAR DIAGNOSTIC STRIP TEST SCH ×3 (05:57→17:20)
[2019-07-24] MEDS: INSULIN LISPRO 100 UNITS/ML SUBCUT SCH ×3 (06:09→17:50)
[2019-07-24] MEDS: SODIUM CHLORIDE 0.9% INJ 3ML FLUSH IVF SCH ×2 (06:09→14:35)
[2019-07-24 06:53] LABS: BASOPHILS % 0.4 % (0.0-2.0); EOSINOPHILS % 12.1 % (0.0-5.0); HEMOGLOBIN. 9.9 g/dL (14.0-18.0); LYMPHOCYTES % 25.1 % (20.0-50.0); MEAN CORPUSCULAR HEMOGLOBIN 31.3 pg (28.0-32.0); MEAN CORPUSCULAR VOLUME 88.3 fL (80.0-94.0); MEAN PLATELET VOLUME 7.7 fl (7.4-10.4); MONOCYTES % 7.6 % (2.0-8.0); NEUTROPHILS % 54.8 % (40.0-76.0); PLATELET 207 x1000/uL (130-400); RED BLOOD CELL COUNT 3.17 mill/uL (4.7-6.1); RED CELL DISTRIBUTION WIDTH 13.9 % (11.6-14.6)
[2019-07-24 07:56] LABS: CHLORIDE 109 mEq/L (98-107)
[2019-07-24 08:00] VITALS: BP 105/68
[2019-07-24] MEDS: PANTOPRAZOLE SODIUM 40 MG/VIAL IV SCH (08:57)
[2019-07-24] MEDS: CLOPIDOGREL 75MG TABLET PO SCH (08:57)
[2019-07-24] MEDS ORDERED: LEVOFLOXACIN 500MG TABLET PO SCH (11:00)
[2019-07-24 12:00] VITALS: BP 101/64
[2019-07-24 16:00] VITALS: BP 105/68
== END 2019-07-24 20:55 | disposition left against medical advice (07) | DRG 254 ==
LOC: ER 15:15 → EDBEDREQ 20:31 → 7WST 20:47 → EDBEDREQ 20:50 → EDBEDREQTM 20:50 → EDBEDREQSVC 07-21 11:47 → ENRESERV 07-21 13:01 → 6WST 07-21 23:37
PROVIDERS: ADMIT Internal Medicine; ATTEND Internal Medicine
PROC: 30233N1 Transfusion of Nonautologous Red Blood Cells into Peripheral Vein, Percutaneous Approach (ICD-10-PCS; principal; 2019-07-21)
DX: K92.1 Melena (principal); J96.01 Acute respiratory failure with hypoxia; G93.40 Encephalopathy, unspecified; E87.2 Acidosis; E46 Unspecified protein-calorie malnutrition; I11.0 Hypertensive heart disease with heart failure; R65.10 Systemic inflammatory response syndrome (SIRS) of non-infectious origin without acute organ dysfunction; E87.5 Hyperkalemia; E11.65 Type 2 diabetes mellitus with hyperglycemia; D62 Acute posthemorrhagic anemia; I50.9 Heart failure, unspecified; I42.9 Cardiomyopathy, unspecified; I25.10 Atherosclerotic heart disease of native coronary artery without angina pectoris; I95.1 Orthostatic hypotension; E78.5 Hyperlipidemia, unspecified; Z86.73 Personal history of transient ischemic attack (TIA), and cerebral infarction without residual deficits; Z98.61 Coronary angioplasty status; Z03.818 Encounter for observation for suspected exposure to other biological agents ruled out; Z86.011 Personal history of benign neoplasm of the brain; Z68.1 Body mass index [BMI] 19.9 or less, adult; Z79.82 Long term (current) use of aspirin; Z79.84 Long term (current) use of oral hypoglycemic drugs; Z79.899 Other long term (current) drug therapy
CPT/HCPCS: 36415; 36600; 71045; 80048; 80053; 81003; 82375; 82728; 82805; 82962; 83540; 83550; 83605; 83880; 84145; 84484; 85014; 85018; 85025; 86850; 86900; 86920; 93005; 99291; C9113; J1650; J1956; J3490; J7030; P9016; U0003